=== PATIENT | female | born 1980 | race Caucasian/White ===

== ENCOUNTER 2021-08-26 22:24 | Inpatient (IN) | payer BC, SELFPAY ==
[2021-08-26 22:39] VITALS: BP 145/76; PULSE 67
[2021-08-26 22:39] LABS: Basophils Percent Auto 0.3 % (0.2-1.2); Eosinophils Absolute Auto 0.1 K/mm3 (0-0.3); Eosinophils Percent Auto 0.8 % (0-4.4); Hematocrit 34.9 % (37.0-47.0); Hemoglobin 11.9 g/dL (12.0-15.0); Immature Granulocyte Absolute 0.06 K/mm3 (0.00-0.031); Immature Granulocyte Percent A 0.5 % (0-0.5); Lymphocytes Absolute Auto 2.74 K/mm3 (0.9-3.2); Lymphocytes Percent Auto 24.6 % (18.3-44.2); Mean Corpuscular HGB Conc 34.1 g/dl (32-36); Mean Corpuscular Volume 87.9 fl (80-100); Mean Platelet Volume 9.4 fl (7.4-10.4); Monocytes Absolute Auto 0.7 K/mm3 (0.1-0.6); Monocytes Percent Auto 6.6 % (2.6-8.5); Neutrophils Absolute Auto 7.5 K/mm3 (1.3-6.7); Neutrophils Percent Auto 67.2 % (45.5-73.1); Platelet Count Result 202 k/mm3 (150-375); Red Blood Count 3.97 M/mm3 (4.2-5.4); Red Cell Distribution Width 12.6 % (11.5-14.5); White Blood Count 11.1 K/mm3 (4.5-10.0)
[2021-08-26] MEDS: LACTATED RINGERS 1,000 ML 125 ML IV CONT (22:43)
[2021-08-26] MEDS: AMPICILLIN 2 GM/NS 100 ML 2 GM/100 ML BAG IVPB (22:44)
[2021-08-26 22:46] VITALS: BP 114/91; PULSE 67; RESP 18; TEMP 36.8
[2021-08-26 23:00] VITALS: BMI 35.2
[2021-08-26 23:01] VITALS: BP 132/79; PULSE 72
[2021-08-26] MEDS: BETAMETHASONE SOD PHOS/ACETATE 30 MG/5 ML VIAL 12 MG IM (23:01)
--- NOTE | 2021-08-26 23:18 | PM.IMHP ---
H&P: HPI History of Present Illness Date/Time: 08/26/21 23:18 Patient is a at 34 3/7 weeks by LMP 12/28/20 with an EDC 10/04/2021 consistent with an 8 w6 d ultrasound. She presented with complaints of LOF clear at 2100. She started having regular contractions at approximately 10. On arrival to L and D she had gross ROM and positive ROM plus. Contractions q 3-4. Cervix 4/75/-2. tracing reassuring. PNC significant for AMA, hypothyroidism. No fevers. No spotting. Bedside ultrasound on L and D confirmed cephalic. Ultrasound measurements suboptimal BPD measuring 35 weeks. Chief Complaint: Leaking of fluid. Review of Systems Review of Systems: All systems reviewed & are unremarkable except as noted in HPI and below Constitutional: Constitutional: Reports no additional constitutional complaints and Denies headache(s) Eyes: Eyes: Denies spots in vision ENT: Reports system reviewed and no additional complaints, except as documented and Denies headache(s) Cardiovascular: Cardiovascular: Denies chest pain and Denies dyspnea Respiratory: Respiratory: Denies dyspnea Gastrointestinal: Gastrointestinal: Reports no additional gastrointestinal complaints Genitourinary: Genitourinary: Reports amenorrhea Musculoskeletal: Musculoskeletal: Reports no additional musculoskeletal complaints Integumentary/Breasts: Skin/Breast: Denies breast mass and Denies rash Neurologic: Denies headache(s) Psychiatric: Psychiatric: Reports no additional psychiatric complaints [facility] Past Medical History Medical History Depression Substance abuse Surgical History Surgical History No pertinent past surgical history Family History Family History Mother Family history of drug dependence Family history of diabetes mellitus in first degree relative Sibling Family history of drug dependence Patient's sister is in good health Patient's brother is in good health Other Asthma Cerebrovascular accident Depression Diabetes mellitus Family history of alcoholism Family history of cardiovascular disease Family history of malignant neoplasm of breast Social History Social History Smoking status: Never smoker Second hand tobacco smoke exposure: No Smoking end date: 05/25/11 Alcohol intake: never Substance use type: marijuana Meds Home Medications and Allergies Home Medications Medication Instructions Recorded Confirmed Type docosahexaenoic acid 200 mg capsule mg PO 02/21/21 08/15/21 History calcium carbonate 200 mg calcium 200 mg PO BID 06/19/21 08/15/21 History (500 mg) chewable tablet levothyroxine 100 mcg tablet See Rx Instructions .ROUTE 08/01/21 08/15/21 Rx .COMPLEX #90 unspecified Allergies Allergy/AdvReac Type Severity Reaction Status Date / Time No Known Allergies Allergy Unknown Verified 08/15/21 09:50 Vital Signs Vital Signs - 24 hr 08/26/21 22:39 08/26/21 22:46 08/26/21 23:01 Pulse Rate 67 67 72 Blood Pressure 145/76 H 114/91 H 132/79 Exam Const: General: no acute distress Eyes: General: appearance normal, both eyes and all related structures Resp: Effort & Inspection: normal respiratory effort Cardio: Rate: regular rate GI: Other: Gravid no fundal tenderness no right upper quadrant pain : External Female Exam: normal external appearance Other: cevix 4/75/-2 by nurse exam Skin: General skin exam: no rashes or lesions noted Neuro: Cognition (Neuro): normal cognition Extrem: General: normal to inspection Psych: Mental Status: mental status grossly normal H&P: Results Labs Labs: Short CBC 08/26/21 Range/Units 22:28 WBC 11.1 H (4.5-10.0) K/mm3 Hgb 11.9 L (12.0-15.0) g/dL Hct 34.9 L (37.0-47.0) % Plt Count 202 (15
--- NOTE | 2021-08-26 23:28 | PM.OBPNVD ---
OB - PN: Subj Subjective Date/time seen: 08/26/21 23:28 FHT 130, cat 1, ctx q 4-5, discussed risk of prematurity, questions answered. Active labor. expectant management. OB - PN: Obj Data Labs CBC & Chem 7: 08/26/21 22:28 08/26/21 23:14 Labs: Laboratory Results - last 24 hr 08/26/21 22:28 WBC 11.1 H RBC 3.97 L Hgb 11.9 L Hct 34.9 L MCV 87.9 MCH 30.0 MCHC 34.1 RDW 12.6 Plt Count 202 MPV 9.4 Immature Gran % (Auto) 0.5 Neut % (Auto) 67.2 Lymph % (Auto) 24.6 [place] % (Auto) 6.6 Eos % (Auto) 0.8 Baso % (Auto) 0.3 Lymph # (Auto) 2.74 [place] # (Auto) 0.7 H Eos # (Auto) 0.1 Baso # (Auto) 0.0 Abs Immat Gran (auto) 0.06 H Absolute Neuts (auto) 7.5 H Absolute Nucleated RBC 0.0 Nucleated RBC % 0.0 OB - PN A/P Time Spent With Patient Time: Total time spent is greater than 50% in coordination of care (as documented) at patient's floor/unit and/or counseling patient:
[2021-08-26 23:33] LABS: Potassium 3.6 mmol/L (3.4-5.0)
[2021-08-26 23:38] LABS: Alanine Aminotransferase 37 U/L (4-35); Albumin Level 3.5 g/dL (3.5-5.1); Alkaline Phosphatase 152 U/L (38-126); Anion Gap 4 mmol/L (8-16); Aspartate Amino Transferase 35 U/L (14-36); Bilirubin,Total 0.2 mg/dL (0.2-1.3); Blood Urea Nitrogen 12 mg/dL (7-17); Calcium 8.9 mg/dL (8.4-10.2); Carbon Dioxide 23 mmol/L (22-30); Chloride 107 mmol/L (98-107); Estimated Glomerular Filt Rate > 60; Glucose 101 mg/dL (65-110); Sodium 134 mmol/L (137-145); Uric Acid 3.4 mg/dL (2.5-7.5)
--- NOTE | 2021-08-26 23:43 | LDADM ---
This patient, Barby Garcia, was admitted to Labor/Delivery/Recovery 106 on 08/26/21 at 21:59. Plans for labor, pain management and were discussed with patient. Patient/family oriented to hospital policies and general routines including ID bracelet, bed and alarms, visiting hours, pain management, procedures, bathroom and other care routines, personal items, smoking policy, room service/diet and guest tray routines, infant security routines, and visiting hours. Patient/Family are encouraged to report perceived risks to care and to ask questions if they do not understand what they are told or what they should do. See [facility] for further documentation.
[2021-08-27] VITALS (16 sets, daily range): BP systolic 128–147; BP diastolic 70–82; PULSE 59–81; RESP 16–20; TEMP 36.3–37.3; O2SAT 99
[2021-08-27] MEDS: AMPICILLIN 1 GM/NS 50 ML 1 GM/50 ML BAG IVPB (02:24)
[2021-08-27] MEDS: OXYTOCIN 30 UNITS/NS 500 ML 30 UNITS/500 ML BAG 999 UNITS IV CONT (03:20)
[2021-08-27] MEDS: LIDOCAINE HCL 1% LOCAL INJ 10 ML VIAL (03:30)
--- NOTE | 2021-08-27 03:41 | PM.OBPRVD ---
OB - Delivery Note Procedure Delivery date: 08/27/21 Procedure: Spontaneous vaginal delivery Events: Premature Rupture of Membranes Induction method: None Delivery monitor: External FHT Route of delivery: Laceration Description: Vaginal (introitus) Delivery repair: vicryl (3.0 vicryl figure of eight stitch) Specimen: Yes (Placenta and cord) Quantitative Blood Loss (ml): 200 Anesthesia type: None Disposition: Floor Complications: None Narrative: Patient admitted on the evening of 08/26/21 after rupture of membranes confirmed. Her cervix on admission was four centimeters. She was started on IV antibiotics for GBS prophylaxis. She was given dose of betamethasone. She started feeling pressure and was 9 and immediately went to complete at approximately 0314 and delivered a male infant at 0315 prior to my arrival. He was vigorously crying and taken to warmer. I obtained cord blood gases from venous, artery not able to be obtained. Cord blood obtained. Placenta delivered spontaneously and intact. She sustained a small vaginal laceration at introitus which was repaired with a figure of eight suture of 3.0 vicryl. EBL 200cc. Sponge count correct. She tolerated procedure well. Baby Date of : 08/27/21 Time of : 03:15 Weeks of gestation at delivery: 34 gender: Male Weight (pounds): 5 Weight (ounces): 12 presentation: vertex Placenta delivery description: Spontaneous Cord Vessel Description: Clamped/Cut score one minute: 9 score five minutes: 9 AMG Delivery Billing Delivery Delivery: Delivery Charge
[2021-08-27] MEDS: OXYTOCIN 30 UNITS/NS 500 ML 30 UNITS/500 ML BAG 125 UNITS IV CONT (04:30)
[2021-08-27] MEDS: BENZOCAINE 20% AER SPR (*SP) 56 GM CAN 1 SPRAY TOPICAL (05:15)
[2021-08-27] MEDS: ACETAMINOPHEN 325 MG TABLET 650 MG PO (05:15)
[2021-08-27] MEDS: WITCH HAZEL 40 PADS 1 PAD TOPICAL (05:15)
[2021-08-27] MEDS: IBUPROFEN 600 MG TABLET PO ×3 (05:16→20:20)
--- NOTE | 2021-08-27 06:40 | PC.NURSE ---
Patient transferred to post room #288 per wheelchair. Support person present. Oriented to unit, room, information board, rooming in, admission packet and security measures. Patient verbalizes understanding.
[2021-08-27] MEDS: MULTIVIT/MIN/PREN/FOL AC/IRON TABLET 1 TAB PO (07:44)
[2021-08-27] MEDS: DOCUSATE SODIUM 100 MG CAPSULE PO ×2 (07:44→17:15)
[2021-08-27 11:53] LABS: Rapid Plasma Reagin Non-Reactive (NonReactive)
--- NOTE | 2021-08-27 12:42 | PC.NURSE ---
[id number] -[id number] Introductions were made and consulted with patient to assess needs related to . Mother led conversation with her experience with feeding her 34w4d baby so far. Mother works well with her and states infant has latched well with no pain but now is having difficulty waking up to breastfeed. Reviewed good handwashing when working with , breast, nipples and how to protect the nipples with a deep latch. Encouraged understanding the benefits of skin to skin, responding to feeding cues, frequencies of feeding 8-12 times in 24 hours (approximately 2-3 hours), duration of feedings, milk production, intake/output feeding sheet and signs of adequate intake. Discussed stimulating with skin to skin, hand expressing colostrum, touch and talking to to encourage eating at the breast. Reviewed positioning and alignment, supporting breast, off-centered (asymmetrical latch) and leading with the chin with big open wide gape. is sleepy and reluctant. Very rarely does attempt with wipe open gape to latch but may do a few sucks or hold nipple in mouth. was not able to maintain latch. Discussed hand expression and initiating pumping if infant doesn't stimulate breast/nipples/hormones for milk production. Nipple care with optimal latching and good positioning. Mother demonstrates good hand expression technique and finger feeds colostrum into infant's mouth. Resources used to facilitate learning were used from the visual handout/ tool/mom and baby guide. Mother voiced (and demonstrated) understanding responding to feeding cues, may need to stimulating infant approximately 2-3 hours from the start of the last feeding, calling for assistance if the does not latch or there discomfort . Reported to primary RN. [phone] [id number] RN called into the room. Mother has been practicing skin to skin, talking, touching, hand expressing colostrum and finger feeding infant, blood sugar was check at 63. will rarely attempt to latch with big open mouth may do a few sucks, then holds nipple in his mouth. Attempts were made on both breast in football position. Discussed milk production and suggested mother pump her breast for stimulation and colostrum. Breast pump provided due to ineffective feeding. Reviewed information regarding pump care, hand washing, nipple care and pumping 8 times in 24 hours (1-2 at night) for 10-15 minutes. Collection and storage of breastmilk per mom and baby guide. Encouraged mom to place skin to skin, breast massage and use hand expression and/or a breast pump in a relaxing atmosphere. Reviewed recording pumping schedule on the feeding sheet. Mother pumped 0.2 ml and it was spoon fed to infant by RN. Referred to the visual handout along with the mom and baby guide as a resource and when to call a provider. Reported to primary RN.
--- NOTE | 2021-08-27 15:25 | PC.NURSE ---
1410 - Consulted with patient to assess needs related to . Mother led conversation with her experience with feeding baby so far. Mother works well with her and has been placing infant skin to skin, finger feeding colostrum to infant (mother states colostrum is less than before), she has pumped and didn't not have colostrum to collect. Education given regarding attempting to breastfeed for 15 minutes, pumping for 15 minutes, then supplementing th 34w4d EGA . Mother was taught paced bottle feeding due to clamping down and not attempting to used a wide open gape for . Mother voiced understanding the benefits of skin to skin, responding to feeding cues, frequencies of feeding 8-12 times in 24 hours (approximately 2-3 hours), duration of feedings, milk production, intake/output feeding sheet, pumping frequencies for milk production, and signs of adequate intake. Resources used to facilitate learning were used from the mom and baby guide. Mother voiced understanding responding to feeding cues, may need to stimulating approximately 2-3 hours from the start of the last feeding, calling for assistance if the does not latch or there discomfort . Reported to primary RN.
[2021-08-27] MEDS: POLYSACCHARIDE IRON COMPLEX 150 MG CAPSULE PO (17:15)
[2021-08-28 05:34] LABS: Hemoglobin 10.8 g/dL (12.0-15.0)
[2021-08-28] MEDS: MULTIVIT/MIN/PREN/FOL AC/IRON TABLET 1 TAB PO (06:53)
[2021-08-28] MEDS: DOCUSATE SODIUM 100 MG CAPSULE PO ×2 (06:53→16:51)
[2021-08-28] MEDS: IBUPROFEN 600 MG TABLET PO ×2 (06:54→16:51)
[2021-08-28 07:40] VITALS: BP 135/81; PULSE 88; RESP 18; TEMP 36.3; O2SAT 98
--- NOTE | 2021-08-28 07:49 | PC.NURSE ---
8316 - Mother led the conversation with regards to her experience feeding her baby throughout the night. was bottle fed, mother attempted to breastfeed but infant would latch, take a few sucks and stop. Mother did not pump during the night. Reviewed production of human milk though stimulating the nipples/breast either with breasfeeding effectively, hand expression or manual/electric pumping, transition of milk, signs of adequate intake and engorgement prevention/relief and when to call the infant care provider using the mom and baby guide. Reviewed medications mother is taking with information provided by [facility], community resources and outpatient services as listed in the mom and baby guide/[facility] website. Reinforced watching for feeding cues with responsive feeding and how to stimulate to initiate feeding three hours from the start of the last feeding. Mother voiced understanding of information shared. Reported to primary RN.
--- NOTE | 2021-08-28 08:50 | PC.NURSE ---
On 08/28/21, the student, Riya Leos, provided care and completed [facility] documentation on this patient. I have reviewed the student's documentation and agree with the findings.
[2021-08-28] MEDS: POLYSACCHARIDE IRON COMPLEX 150 MG CAPSULE PO (16:51)
[2021-08-28] MEDS: BENZOCAINE 20% AER SPR (*SP) 56 GM CAN 1 SPRAY TOPICAL (16:52)
[2021-08-28] MEDS: WITCH HAZEL 40 PADS 1 PAD TOPICAL (16:52)
[2021-08-28 19:30] VITALS: BP 132/77; PULSE 65; RESP 18; TEMP 36.6
--- NOTE | 2021-08-28 20:38 | P.PNOB_ITS ---
OB - PN: Subj Subjective Date/time seen: 08/28/21 0824 Patient comments: pain well controlled, tolerating diet and other (Decreasing lochia.) baby status: doing well and nursing well OB - PN: Obj Data Labs CBC & Chem 7: 08/28/21 04:13 08/26/21 23:14 Labs: Laboratory Results - last 24 hr 08/28/21 04:13 Hgb 10.8 L Hct 32.0 L OB - PN A/P Plan day: 1 Plan: routine care Comments: Patient doing well.Continue routine care. Time Spent With Patient Time: Total time spent is greater than 50% in coordination of care (as documented) at patient's floor/unit and/or counseling patient: Review of Systems Review of Systems: All systems reviewed & are unremarkable except as noted in HPI and below Constitutional: Constitutional: Reports no additional constitutional complaints Cardiovascular: Cardiovascular: Denies dyspnea Respiratory: Respiratory: Denies dyspnea Gastrointestinal: Gastrointestinal: Reports no additional gastrointestinal complaints and Denies abdominal pain Genitourinary: Genitourinary: Reports no additional female genitourinary complaints Exam Const: General: no acute distress, alert and awake Resp: Effort & Inspection: normal respiratory effort GI: GI Palp: No Tenderness to palpation present (GI) Other: Fundus n ontender, below umbilicus Psych: Appearance: grossly normal Affect: normal affect Other: Abd: fundus firm below umbilicus, nontender Perineum: healing Ext: nontender
[2021-08-28] MEDS: SIMETHICONE 80 MG TAB.CHEW PO (20:41)
[2021-08-29 08:30] VITALS: BP 146/83; PULSE 67; RESP 18; TEMP 36.8; O2SAT 100
[2021-08-29] MEDS: IBUPROFEN 600 MG TABLET PO (09:57)
[2021-08-29] MEDS: MULTIVIT/MIN/PREN/FOL AC/IRON TABLET 1 TAB PO (09:57)
[2021-08-29] MEDS: DOCUSATE SODIUM 100 MG CAPSULE PO (09:57)
--- NOTE | 2021-09-23 08:35 | PM.OBDSVD ---
DS: Admitting Diagnosis Discharge Date 08/29/21 Admitting Diagnosis rupture of membranes. DS: Discharge Diagnosis Discharge Diagnosis (1) premature rupture of membranes (PPROM) with onset of labor within 24 hours of rupture in first trimester, antepartum: Code(s): O42.011 - premature rupture of membranes, onset of labor within 24 hours of rupture, first trimester Status: Acute (2) Delivery normal: Code(s): O80 - Encounter for full-term uncomplicated delivery Status: Acute OB - DS: Summary Hospital Course Hospital Course: Patient admitted for PROM and she had subsequent vaginal delivery of male . she did well. On day 1 she was ambulating well and had adequate pain control and lochia decreasing. On day 2 she was doing well. Baby doing well. She had an isolated elevated blood pressure , no signs or symptoms of pre-eclampsia. She was discharge home with discharge precautions. OB Procedures : Ultrasound OB Procedures Intrapartum: Spontaneous Vag Delivery OB Procedures: : None Peripartum Data Delivery Method: Natural Vaginal Laceration Description: Vaginal - 1st Degree complications: none Status at Discharge Functional status at discharge: independent ambulation Time Spent with Patient Time attestation: Total time spent providing and/or coordinating discharge services: Exam Const: General: cooperative Orientation/consciousness: oriented to person, oriented to place and oriented to time HENMT: General nose exam: Normal external nose present Eyes: General: appearance normal, both eyes and all related structures Resp: Effort & Inspection: normal respiratory effort GI: Inspection: normal to inspection : External Female Exam: normal external appearance Other: perineum healing fundus below umbilicus firm nontender Skin: General skin exam: normal color Neuro: General: oriented to person, oriented to place and oriented to time Extrem: General: normal to inspection and no calf tenderness Psych: Appearance: grossly normal Mental Status: mental status grossly normal DS: Data Data Completed and Pending Completed studies during hospitalization: Pending at discharge 08/27/21 03:25 Surgical [PTH] Routine Discharge Plan Discharge Attending physician on discharge: Jared Ramirez Discharging Clinician: Jared Ramirez Patient Disposition: Home, Self-Care Activity: may shower and pelvic rest Diet: regular Discharge Instructions: Education: Mom and Baby Guide Given to: Mother Follow-Up: Call your delivering provider's office for an appointment to be seen in: 4 Weeks Mom and baby should come to the [facility] for the follow-up appointment. (Appointment time to be scheduled when infant is discharged from hospital.) BREAST CARE: * Wear a snug supportive bra. * For engorgement discomfort: Breast Feeding: * Apply warm moist washcloths * Express milk as needed to relieve engorgement * Wear loose clothing * For sore nipples: * Identify correct latch-on * Apply warm moist washcloths before and after nursing * Air dry nipples after nursing * May apply Lansinoh cream to nipples PERINEAL CARE: * Until bleeding stops, use your nayla bottle after urinating * Change your pad frequently throughout the day * You may take sitz baths several times a day (fill your bathtub with warm water and soak for 20 minutes.) Do NOT bathe in the water * No tub baths until seen by your physician - You may shower ACTIVITY: * Rest as much as possible. * Do not exercise or lift anything heavier than your baby (such as laundry or other children.) * Avoid stairs or driving as much as possible. * Do not put anything into the vagina. No douching, tampons, or sexual activity until seen by physician. NOTI
== END 2021-08-29 16:30 | disposition home or self-care (01) | DRG 805 ==
LOC: ANHLDR 08-27 10:47 → ANHOB2 08-27 10:47
PROVIDERS: Admitting Provider Obstetrics & Gynecology; Visit Provider Obstetrics & Gynecology
DX: O42.913 Preterm premature rupture of membranes, unspecified as to length of time between rupture and onset of labor, third trimester (principal); O60.14X0 Preterm labor third trimester with preterm delivery third trimester, not applicable or unspecified; Z37.0 Single live birth; Z3A.34 34 weeks gestation of pregnancy; O70.0 First degree perineal laceration during delivery; O36.8330 Maternal care for abnormalities of the fetal heart rate or rhythm, third trimester, not applicable or unspecified; O99.284 Endocrine, nutritional and metabolic diseases complicating childbirth; E03.9 Hypothyroidism, unspecified
CPT/HCPCS: 36415; 80053; 84112; 84550; 85014; 85018; 85025; 86592; 86850; 86900; 86901; 87081; 87147; 88307; A9270; J0290; J0702; J2590; J7120